=== PATIENT | male | born 1995 | race Caucasian/White ===

== ENCOUNTER 2021-07-29 12:19 | Emergency (ER) | payer BC ==
[~2021-07-29] VITALS: Ht 167.6 cm; Wt 74.8 kg
[2021-07-29 12:20] VITALS: BP_SYST 145
[2021-07-29 13:05] LABS: BASOPHILS # (AUTO) 0.1 K/uL (0.0-0.2); BASOPHILS % (AUTO) 0.8 % (0.0-2.0); EOSINOPHILS % (AUTO) 0.5 % (0.0-4.0); HEMATOCRIT 31.4 % (36-54); HEMOGLOBIN 10.1 g/dL (14.0-18.0); LYMPHOCYTES # (AUTO) 2.1 K/uL (1.0-5.5); LYMPHOCYTES % (AUTO) 29.2 % (20.5-51.5); MEAN CORPUSCULAR HEMOGLOBIN 23 pg (27-31); MEAN CORPUSCULAR HGB CONC 32 % (32-36); MEAN CORPUSCULAR VOLUME 72 fL (79.0-98.0); MONOCYTES # (AUTO) 0.7 K/uL (0.0-1.0); MONOCYTES % (AUTO) 9.5 % (1.7-9.3); NEUTROPHILS # (AUTO) 4.4 K/uL (1.8-7.7); PLATELET COUNT (AUTO) 219 K/uL (130-430); RED BLOOD CELL COUNT(AUTO) 4.38 MIL/uL (4.2-6.2); RED CELL DISTRIBUTION WIDTH 16.6 % (9.0-15.0); WHITE BLOOD COUNT (AUTO) 7.3 K/uL (4.8-10.8)
[2021-07-29 13:14] LABS: CALCIUM 8.5 mg/dL (8.4-11.0); CREATININE 1.11 mg/dL (0.55-1.30); POTASSIUM 4.1 mmol/L (3.5-5.1)
[2021-07-29 13:18] LABS: PROTHROMBIN TIME 10.7 SECS (9.5-12.5)
[2021-07-29 13:20] LABS: ALBUMIN 4.2 g/dL (3.4-4.8); TOTAL BILIRUBIN 0.4 mg/dL (0.0-1.0)
[2021-07-29 13:56] VITALS: BP_SYST 125
== END 2021-07-29 13:56 | disposition home or self-care (01) ==
LOC: SED 12:19
DX: K62.5 Hemorrhage of anus and rectum (principal); R10.9 Unspecified abdominal pain
CPT/HCPCS: 36415; 76376; 80053; 82150; 82272; 83605; 83690; 85025; 85610-TC; 85730-TC; 86886; 86900; 86901; 99284

== ENCOUNTER 2021-08-01 10:00 | Inpatient (IN) | payer BC ==
[~2021-08-01] VITALS: Ht 167.6 cm; Wt 73.5 kg
[2021-08-01 10:10] VITALS: BP_SYST 131
--- NOTE | 2021-08-01 10:10 | NUR ---
Patient triaged and placed in waiting room. VSS and patient appears in no acute distress at this time. Accompanied by SELF, awaiting available bed, and MD notified of need for MSE.
--- NOTE | 2021-08-01 10:12 | NUR ---
DR ASHLEY OUT TO TRIAGE ROOM FOR EVALUATION
--- NOTE | 2021-08-01 10:42 | NUR ---
BROUGHT BACK TO BED #3 AND REPORT GIVEN TO ANKUSH
[2021-08-01 10:52] LABS: BASOPHILS % (AUTO) 1.3 % (0.0-2.0); EOSINOPHILS # (AUTO) 0.1 K/uL (0.0-0.4); EOSINOPHILS % (AUTO) 1.7 % (0.0-4.0); HEMATOCRIT 26.7 % (36-54); HEMOGLOBIN 8.5 g/dL (14.0-18.0); LYMPHOCYTES % (AUTO) 32.9 % (20.5-51.5); MEAN CORPUSCULAR HEMOGLOBIN 23 pg (27-31); MEAN CORPUSCULAR HGB CONC 32 % (32-36); MEAN CORPUSCULAR VOLUME 72 fL (79.0-98.0); MONOCYTES # (AUTO) 0.3 K/uL (0.0-1.0); MONOCYTES % (AUTO) 9.5 % (1.7-9.3); NEUTROPHILS # (AUTO) 1.7 K/uL (1.8-7.7); NEUTROPHILS % (AUTO) 54.6 % (40.0-70.0); PLATELET COUNT (AUTO) 206 K/uL (130-430); RED BLOOD CELL COUNT(AUTO) 3.69 MIL/uL (4.2-6.2); RED CELL DISTRIBUTION WIDTH 16.7 % (9.0-15.0); WHITE BLOOD COUNT (AUTO) 3.1 K/uL (4.8-10.8)
[2021-08-01 11:01] LABS: C-REACTIVE PROTEIN QUANT < 0.2 mg/dL (0-0.5)
[2021-08-01 11:04] LABS: ANION GAP 8 (5-15); CALCIUM 8.6 mg/dL (8.4-11.0); CHLORIDE 104 mmol/L (98-107); CREATININE 0.95 mg/dL (0.55-1.30); GLUCOSE 95 mg/dL (70-99); POTASSIUM 3.6 mmol/L (3.5-5.1); SODIUM SERUM 139 mmol/L (136-145); UREA NITROGEN, BLOOD 21 mg/dL (8-21)
--- NOTE | 2021-08-01 11:11 | NUR ---
PT COMES TO ER BECAUSE HE WAS TOLD TO [facility] TODAY FOR A FOLLOW UP. REPORTS BLEDING FROM [facility], LAST FRIDAY MORNING-DRK RED IN COLOR. ALSO STATES HE WAS HERE ON FRIDAY FOR SAME PROBLEM. DENIES ANY CURRENT ABDOMINAL PAIN,NO RECTAL BLEEDING OR HEMATURIA. PT SKIN COLOR PALE, CAP REFILL<3. DENIES ANY SOB OR DIZZINESS. WAITING FOR ER MD GALICIA.
[2021-08-01 11:14] LABS: GFR AFRICAN AMERICAN 126 mL/min (>90)
[2021-08-01 11:25] LABS: ALANINE AMINOTRANSFERASE 29 U/L (12-78); AMYLASE 43 U/L (0-100); ASPARTATE AMINOTRANSFERASE 16 U/L (10-37); LIPASE 143 U/L (73-393); TOTAL BILIRUBIN 0.3 mg/dL (0.0-1.0)
--- NOTE | 2021-08-01 12:14 | NUR ---
ADMISSION ORDERS RECEIVED, PT UPDATED ON STATUS AND PLAN OF CARE.
[2021-08-01 13:29] LABS: BILIRUBIN,URINE NEGATIVE (NEGATIVE); BLOOD, URINE NEGATIVE (NEGATIVE); CLARITY/URINE CLEAR (CLEAR); COLOR,URINE YELLOW (YELLOW); GLUCOSE,URINE NEGATIVE (NEGATIVE); KETONES,URINE NEGATIVE (NEGATIVE); LEUKOCYTE ESTERASE ,URINE NEGATIVE (NEGATIVE); NITRITE, URINE NEGATIVE (NEGATIVE); PROTEIN URINE NEGATIVE (NEGATIVE); UROBILINOGEN,URINE 0.2 (0.2-1.0)
[2021-08-01] MEDS ORDERED: MAGNESIUM SULFATE 50 ML IV PRN (14:00)
[2021-08-01] MEDS ORDERED: MORPHINE 2 MG/ML INJ. SYRINGE IVP PRN ×2 (14:00)
[2021-08-01] MEDS ORDERED: DOCUSATE SODIUM 100 MG CAPSULE PO PRN (14:00)
[2021-08-01] MEDS ORDERED: POTASSIUM CHLORIDE 20 MEQ TAB.PRT.SR PO PRN (14:00)
[2021-08-01] MEDS ORDERED: ONDANSETRON HCL 4 MG/2 ML VIAL IVP PRN (14:00)
[2021-08-01] MEDS ORDERED: ACETAMINOPHEN 325 MG TABLET PO PRN (14:00)
[2021-08-01] MEDS ORDERED: MUPIROCIN 2% TOPICAL OINTMENT 22 GM NS PRN (14:00)
[2021-08-01] MEDS ORDERED: NALOXONE HCL 0.4 MG/ML AMP (NARCAN) IVP PRN ×2 (14:00)
[2021-08-01] MEDS ORDERED: ZOLPIDEM TARTRATE 5 MG TABLET PO PRN (14:00)
[2021-08-01] MEDS ORDERED: LORazepam 2 MG/ML VIAL IVP PRN (14:00)
--- NOTE | 2021-08-01 15:37 | NUR ---
NO ACUTE CHANGES IN CONDITION, NO ACTIVE BLEEDING WHILE HERE IN ER. DENIES ANY ABDOMINAL PAIN. PT AWARE OF NPO STATUS.
--- NOTE | 2021-08-01 15:45 | NUR ---
ADMISSION NOTE Received patient from ER via [facility], received report from HPLC CHEMIST. Patient admitted with diagnosis of GI BLEED. Patient oriented to hospital routine, call light, toileting and safety-patient verbalized understanding.
[2021-08-01 15:49] VITALS: BP_SYST 127
--- NOTE | 2021-08-01 15:49 | NUR ---
CONSULTATION PAGED REASON FOR CONSULTATION:GI BLEED WAS CONSULT CALED?Y PERSON WHO WAS NOTIFIED:VIANEY CONSULTING PHYSICIAN:YAYO KHALIL ([facility] [employer]) [facility] SPECIAL[facility] PHONE NUMBER:[phone] REQUESTING PHYSICIAN:
[2021-08-01] MEDS ORDERED: FLU VACC QS2021-22(6MOS UP)/PF 0.5 ML/SYR SYRINGE I.M. PRN (16:00)
[2021-08-01] MEDS: D5NS 1,000 ML IV SCH (16:14)
--- NOTE | 2021-08-01 18:18 | NUR ---
Closing note patient resting in bed, awake, family at bedside, patient and family are aware of plan of care. IV line is patent and infusing well. All needs met, will endorse report to NOC shift nurse, bed in lowest position, two side rails up, call light is within reach, fall and aspiration precautions in place.
[2021-08-01 19:41] LABS: TOTAL IRON BIND. CAPACITY 425 ug/dL (250-450)
[2021-08-01 20:00] VITALS: BP_SYST 142
[2021-08-01] MEDS: PANTOPRAZOLE SODIUM 40 MG/VIAL (PROTONIX) IVP SCH (21:00)
--- NOTE | 2021-08-01 21:06 | NUR ---
med Scheduled medication, Protonix - IVP given. Reviewed side effects (headache, injection site redness) and he verbalized understanding.
--- NOTE | 2021-08-01 21:19 | NUR ---
Dr. Erazo Informed Dr. Erazo that patient is requesting water and he said keep him NPO. Wait for GI to see him, they may choose to do scope. He may have ice chips; TORB
[2021-08-02 00:10] VITALS: BP_SYST 119
--- NOTE | 2021-08-02 00:10 | NUR ---
rounds - V/S Patient resting in bed w/eyes closed. Momentarily awakened for V/S, which are stable. He denies pain. IVF infusing well, no s/sx of infiltration.
[2021-08-02] MEDS: D5NS 1,000 ML IV SCH ×2 (06:02→17:56)
--- NOTE | 2021-08-02 06:14 | NUR ---
FLU shot / BM Patient was provided with written flu vaccine information and side effects were reviewed; he verbalized understanding. Administered flu vaccine to left deltoid, he tolerated. Hung new bag of D5NS and infusing well. He has no further needs. He reports one bowel movement during night; no blood noted.
[2021-08-02 07:03] LABS: HEMATOCRIT 24.5 % (36-54); HEMOGLOBIN 7.8 g/dL (14.0-18.0); MEAN CORPUSCULAR HEMOGLOBIN 23 pg (27-31); MEAN CORPUSCULAR HGB CONC 32 % (32-36); MEAN CORPUSCULAR VOLUME 73 fL (79.0-98.0); PLATELET COUNT (AUTO) 204 K/uL (130-430); RED BLOOD CELL COUNT(AUTO) 3.37 MIL/uL (4.2-6.2); RED CELL DISTRIBUTION WIDTH 17.3 % (9.0-15.0); WHITE BLOOD COUNT (AUTO) 3.3 K/uL (4.8-10.8)
[2021-08-02 07:37] LABS: CALCIUM 8.2 mg/dL (8.4-11.0); CREATININE 1.02 mg/dL (0.55-1.30); POTASSIUM 3.6 mmol/L (3.5-5.1)
[2021-08-02 08:00] VITALS: BP_SYST 115
--- NOTE | 2021-08-02 08:00 | NUR ---
OPENING NOTES AWAKE AND ORIENTED. DENIES ANY PAIN. NO SHORTNESS OF BREATH ON ROOM AIR. IV FLUIDS INFUSING WELL ON RIGHT ARM. EXPLAINED PLAN OF CARE TO PATIENT, VERBALIZED UNDERSTANDING. SAFETY CHECKS DONE. CALL LIGHT WITHIN REACH. WILL MONITOR.
[2021-08-02] MEDS: PANTOPRAZOLE SODIUM 40 MG/VIAL (PROTONIX) IVP SCH ×2 (09:08→20:54)
--- NOTE | 2021-08-02 09:10 | NUR ---
MED PASS EXPLAINED USE OF PROTONIX. MOTHER AT BEDSIDE. UPDATED WITH PLAN OF CARE. IV FLUID STILL INFUSING WELL. SAFETY CHECKS DONE. CALL LIGHT WITHIN REACH.
[2021-08-02 12:00] VITALS: BP_SYST 120
--- NOTE | 2021-08-02 13:50 | NUR ---
URINE SAMPLE URINE SAMPLE COLLECTED AND BROUGHT TO LAB.
[2021-08-02 14:25] LABS: BAND % (MANUAL) 2 % (0-6); BASOPHILS % (MANUAL) 0 % (0-2); EOSINOPHILS % (MANUAL) 2 % (0-7); LYMPHOCYTES % (MANUAL) 41 % (20-46)
[2021-08-02 14:26] LABS: MONOCYTES % (MANUAL) 12 % (0-11)
[2021-08-02 15:06] LABS: BARBITURATE, URINE NEGATIVE (NEG <=200); BENZODIAZEPINE, URINE NEGATIVE (NEG <=150); CANNABINOID, URINE NEGATIVE (NEG <=50); COCAINE, URINE NEGATIVE (NEG <=150); METHAMPHETAMINES SCREEN,URINE NEGATIVE (NEG <=500); OPIATE, URINE NEGATIVE (NEG <=100); PHENCYCLIDINE SCREEN,URINE NEGATIVE (NEG <=25); UR TRICYCLIC ANTIDEPRESSANTS NEGATIVE (NEG <=300); URINE AMPHETAMINE NEGATIVE (NEG <=500); URINE METHADONE NEGATIVE (NEG <=200); URINE OXYCODONE SCREEN NEGATIVE (NEG <=100); URINE PROPOXYPHENE SCREEN NEGATIVE (NEG <=300)
[2021-08-02 16:00] VITALS: BP_SYST 121
[2021-08-02] MEDS ORDERED: BISACODYL 5 MG TABLET.DR (DULCOLAX) PO ONE (17:00)
--- NOTE | 2021-08-02 17:45 | NUR ---
CONSENT SIGNED FOR EGD DR. WILLIAMSON EXPLAINED EGD PROCEDURE TO PATIENT. CONSENTS SIGNED.
[2021-08-02] MEDS ORDERED: GOLYTELY / COLYTE SOLUTION 4 LITERS PO ONE (18:00)
--- NOTE | 2021-08-02 18:51 | NUR ---
CLOSING NOTES RESTING. ALL NEEDS MET THROUGHOUT SHIFT. NO EPISODE OF BLOODY STOOL. WILL ENDORSE TO NIGHT NURSE.
[2021-08-02 20:00] VITALS: BP_SYST 129
--- NOTE | 2021-08-02 20:00 | NUR ---
INITIAL NOTES; PT IS AWAKE AND ORIENTED ; NOT IN ANY ACUTE DISTRESS ; VITALS ARE STABLE ; FAMILY AT BEDSIDE ; PT IS AWARE ABOUT EGD IN AM AND PT KNOWS THAT HE CANNOT EAT OR DRINK ANYTHING AFTER MIDNIGHT . WILL REMIND IM LATER AGAIN ; IV FLUID IS INFUSING TO R AC , NO S/S OF ANY INFILTRATION NOTICED . ALL NEEDS ATTENDED ; WILL CONTINUE TO MONITOR PT .
--- NOTE | 2021-08-02 22:45 | NUR ---
CALLED : DR NAVARRETE CALLED AND TALKED WITH CHARGE NURSE , NOTIFIED CN THAT HE ENTERED ORDER FOR COLONOSCOPY AND OTHER MEDICATION .
--- NOTE | 2021-08-02 23:00 | NUR ---
RN NOTES: TALKED WITH PT AND NOTIFIED HIM ABOUT THE COLONOSCOPY ORDER . EXPLAINED PROCEDURE TO THE PT . DR NAVARRETE DIDN'T EXPLAIN TO THE PT YET .WILL CONTINUE TO MONITOR PT.
[2021-08-02] MEDS ORDERED: GOLYTELY / COLYTE SOLUTION 4 LITERS ONE (23:08)
--- NOTE | 2021-08-03 | NUR ---
GOLYTELY : STARTED GOLYTELY ; PT EDUCATED HOW OFTEN HE HAS TO DRINK . WILL MONITOR PT .
[2021-08-03 01:10] VITALS: BP_SYST 145
--- NOTE | 2021-08-03 02:26 | NUR ---
RN NOTES: PT IS AWAKE , STATED FEELS WEAK ,ENCOURAGED PT TO CALL FOR ASSISTANCE ; NOTICED BM IS ALMOST CLEAR, YELLOW IN COLOR . WILL CONTINUE TO MONITOR PT.
--- NOTE | 2021-08-03 03:15 | NUR ---
RN NOTES; PT STATED HE IS FEELING VERY TIRED , DONT WANT TO DRINK ANY MORE ; ENCOURAGED PT TO DRINK MUCH HE CAN , NOTICED PTS BM IS WATERY JUST YELLOW COLOR , NO SEDIMENTS NOTICED AT THIS TIME . IV FLUID IS INFUSING WELL ;WILL MONITOR PT.
[2021-08-03 05:07] LABS: HEMOGLOBIN A1C 5.4 % (4.8-5.6)
[2021-08-03] MEDS: D5NS 1,000 ML IV SCH (05:19)
--- NOTE | 2021-08-03 06:05 | NUR ---
TAP WATER ENEMA GIVE , PT TOLERATED IT WELL ;BM IS YELLOW WATERY AND CLEAR ;WILL MONITOR PT ,
[2021-08-03 06:58] LABS: EOSINOPHILS # (AUTO) 0.1 K/uL (0.0-0.4); EOSINOPHILS % (AUTO) 2.9 % (0.0-4.0); HEMATOCRIT 22.3 % (36-54); HEMOGLOBIN 7.1 g/dL (14.0-18.0); LYMPHOCYTES # (AUTO) 0.7 K/uL (1.0-5.5); LYMPHOCYTES % (AUTO) 23.2 % (20.5-51.5); MEAN CORPUSCULAR HEMOGLOBIN 23 pg (27-31); MEAN CORPUSCULAR HGB CONC 32 % (32-36); MEAN CORPUSCULAR VOLUME 72 fL (79.0-98.0); MONOCYTES # (AUTO) 0.4 K/uL (0.0-1.0); MONOCYTES % (AUTO) 14.1 % (1.7-9.3); NEUTROPHILS # (AUTO) 1.8 K/uL (1.8-7.7); NEUTROPHILS % (AUTO) 58.8 % (40.0-70.0); PLATELET COUNT (AUTO) 200 K/uL (130-430); RED CELL DISTRIBUTION WIDTH 16.7 % (9.0-15.0); WHITE BLOOD COUNT (AUTO) 3.1 K/uL (4.8-10.8)
[2021-08-03] MEDS ORDERED: DIPHENHYDRAMINE INJ 50 MG/ML VIAL ONE (07:10)
--- NOTE | 2021-08-03 07:13 | NUR ---
CLOSING NOTES: REPORT GIVEN TO RN AT BEDSIDE ; PT IS COMFORTABLE ; PT DIDNT ABLE TO COMPLETE THE GOLYTELY BUT PTS BM IS CLEAR , NO SEDIMENTS NOTICED . PT SIGNED CONSENT FOR COLONOSCOPY .
--- NOTE | 2021-08-03 07:40 | NUR ---
OPENING NOTES ALERT AND ORIENTED. NO SHORTNESS OF BREATH ON ROOM AIR. DENIES ANY PAIN. IV FLUID INFUSING WELL ON RIGHT ARM. FOR EGD AND COLONOSCOPY TODAY. PATIENT IS AWARE AND HAVE AGREED. TAKEN TO GI LAB BY NURSE VANDANA.
[2021-08-03 07:58] LABS: PROTHROMBIN TIME 10.8 SECS (9.5-12.5)
[2021-08-03 08:08] VITALS: BP_SYST 107
[2021-08-03 08:13] LABS: CALCIUM 7.9 mg/dL (8.4-11.0); CREATININE 0.95 mg/dL (0.55-1.30); POTASSIUM 3.4 mmol/L (3.5-5.1)
[2021-08-03] MEDS: PANTOPRAZOLE SODIUM 40 MG/VIAL (PROTONIX) IVP SCH (09:00)
[2021-08-03 10:07] LABS: FOLATE (FOLIC ACID) 9.4 ng/mL (>3.0)
[2021-08-03] MEDS: fentaNYL CITRATE/PF 100 MCG/2 ML AMP ONE ×2 (12:42→12:45)
[2021-08-03] MEDS: MIDAZOLAM HCL 5 MG/5 ML VIAL ONE ×3 (12:42→12:49)
[2021-08-03] MEDS ORDERED: MIDAZOLAM HCL 5 MG/5 ML VIAL ONE (13:00)
--- NOTE | 2021-08-03 14:30 | NUR ---
BACK FROM GI LAB PATIENT CAME BACK FROM GI LAB, ALERT AND ORIENTED. IV FLUIDS INFUSING WELL. DENIES ANY PAIN OR DIZZINESS. WAS ABLE TO AMBULATE TO THE RESTROOM AND BACK TO BED INDEPENDENTLY WITH NO PROBLEM. SERVED WITH LUNCH. CALL LIGHT WITHIN REACH. WILL MONITOR.
[2021-08-03] MEDS ORDERED: FERR-69 PO (14:43)
[2021-08-03 16:00] VITALS: BP_SYST 116
[2021-08-03 16:48] VITALS: BP_SYST 116
--- NOTE | 2021-08-03 18:00 | NUR ---
D/C Patient Patient given medication reconciliation form and D/C instructions. Exit Care provided. Patient verbalized understanding. MD discussed with patient the results and treatment provided. Ambulatory with steady gait for discharge to home. Patient in stable condition, ID band removed. IV catheter removed, intact and dressing applied, no active bleeding. 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 Patient educated on pain management. All belongings sent with patient.
[2021-08-07] MEDS ORDERED: PRO40 PO (08:03)
== END 2021-08-03 18:00 | disposition home or self-care (01) | DRG 379 ==
LOC: SED 10:00 → SMU 12:22
PROVIDERS: ADMIT General Practice; ATTEND General Practice
PROC: 0DB78ZX Excision of Stomach, Pylorus, Via Natural or Artificial Opening Endoscopic, Diagnostic (ICD-10-PCS; principal; 2021-08-03 08:00)
PROC: 0DJD8ZZ Inspection of Lower Intestinal Tract, Via Natural or Artificial Opening Endoscopic (ICD-10-PCS; 2021-08-03 08:00)
DX: K26.4 Chronic or unspecified duodenal ulcer with hemorrhage (principal); K29.71 Gastritis, unspecified, with bleeding; D50.0 Iron deficiency anemia secondary to blood loss (chronic); Z20.822 Contact with and (suspected) exposure to COVID-19
CPT/HCPCS: 36415; 80048; 80053; 80307; 81003; 82150; 82607; 82728; 82746; 83036; 83540; 83550; 83605; 83690; 83735; 85007; 85025; 85027; 85610-TC; 85730-TC; 86140; 87081; 88305; 88312; 88313; 99285; C9113; J1200; J2250; J3010